=== PATIENT | male | born 1995 | race Caucasian/White ===

== ENCOUNTER 2017-11-25 08:19 | Emergency (ER) | payer OTHER, SELFPAY ==
[2017-11-25 08:31] VITALS: BP 141/95; PULSE 93; RESP 22; TEMP 36.4; O2SAT 96
[2017-11-25] MEDS: ALBUTEROL/IPRATROPIUM 3 ML AMPUL INH (08:31)
[2017-11-25 08:37] VITALS: PULSE 77; RESP 15; O2SAT 96
[2017-11-25] MEDS: predniSONE 20 MG TABLET 60 MG PO (09:10)
[2017-11-25] MEDS: ALBUTEROL HFA PREPACK 1 BOX MISC (09:13)
[2017-11-25 09:40] VITALS: BP 117/81; PULSE 67; RESP 16; O2SAT 100
--- NOTE | 2017-11-25 15:22 | ED_ITS ---
HPI - Asthma General Chief Complaint: Asthma Stated Complaint: ASHTMA ATTACK NO MEDS Time Seen by Provider: 11/25/17 08:21 Source: patient Mode of arrival: ambulatory Limitations: no limitations History of Present Illness HPI Narrative: Patient with longstanding history of asthma presents with shortness of breath and wheeze. He has run out of his typical asthma meds including albuterol as he does not have a primary care provider. Patient denies any runny nose, fever or chills and states that a common trigger for him is pollen MD complaint: asthma attack Onset (ago): hour(s) Severity: moderate Context: ran out of meds and allergen exposure Associated symptoms: dry cough Asthma History: childhood onset Related Data Current Asthma Therapy: inhaled bronchodilator Home Medications Medication Instructions Recorded Confirmed albuterol sulfate 11/25/17 Previous Rx's Medication Instructions Recorded prednisone See Label Instructions .ROUTE 11/25/17 .COMPLEX #30 tab Allergies Allergy/AdvReac Type Severity Reaction Status Date / Time No Known Drug Allergies Allergy Verified 11/25/17 08:33 Review of Systems Review of Systems All systems reviewed & are unremarkable except as noted in HPI and below Constitutional Denies chills, Denies fever(s), Denies lethargy and Denies weakness Eyes Denies change in vision, Denies eye discharge, Denies irritation and Denies loss of vision Cardiovascular Denies chest pain, Denies irregular heart rhythm, Denies lightheadedness, Denies palpitations, Reports dyspnea and Denies orthopnea Respiratory Reports as per HPI, Reports cough, Reports dyspnea and Reports wheezing Gastrointestinal Gastrointestinal: Denies abdominal pain, Denies change in bowel habits, Denies diarrhea, Denies nausea and Denies vomiting Musculoskeletal Denies back pain, Denies muscle weakness, Denies numbness and Denies tingling Integumentary/Breasts Denies pruritus, Denies erythema, Denies rash and Denies wounds Neurologic Denies confusion, Denies loss of vision, Denies numbness, Denies tingling and Denies weakness Psychiatric Denies anxiety, Denies confusion, Denies depression, Denies homicidal ideation and Denies suicidal ideation Endocrine Denies palpitations Hematologic/Lymphatic Denies easy bruising Allergic/Immunologic Reports wheezing Exam Narrative Exam Narrative: Pleasant 22-year-old male in moderate distress, sitting on edge of cart upright breathing difficulty Const General: cooperative, well developed and acute distress Nutritional Appearance: well nourished Orientation: alert, awake, oriented x3 and not confused HENMT Head: normocephalic and atraumatic Ears: external ears normal and TM's normal bilaterally Nose: external nose normal and No nasal discharge Face and sinus: sinuses nontender, face symmetric, no sinus tenderness and No dry mucous membranes Mouth: oral mucosae normal and moist mucous membranes Teeth and gingiva: dentition normal Throat: tonsils normal and uvula midline Eyes General: appearance normal, both eyes and all related structures Eyelids: eyelids normal Conjunctivae: conjunctivae normal Sclera: sclerae normal Pupils: PERRL EOM: EOM intact bilaterally Resp Effort & Inspection: able to speak in complete sentences, audible wheezes, cough and prolonged expiratory phase Cardio Rate: regular rate Rhythm: regular rhythm Heart Sounds: no click, no gallops, no murmurs and no rubs Pulses: normal peripheral pulses Skin General: no rashes or lesions noted, No jaundice and No petechiae Neuro General: alert, awake and oriented x3 Cognition: normal cognition Speech: speech normal Gait: normal gait [facility] Medical History Asthma (Acute) Social History Smoking Status: Never smoker Course Orders Ordered: ED Orders 11/25/17 08:21 Measure peak expiratory flow POST TREATMENT Measure peak expiratory flow PRE TREATMENT RT Consult Eval and Treat STAT Discontinued Medications Albuterol (Ventolin Hfa) 2 puff INH NOW PRN PRN Reason: Wheezing Albuterol (Ventolin Hfa Prepack) 1 box MISC SEEINSTR ONE Stop: 11/25/17 08:43 Albuterol (Ventolin Hfa Prepack) 1 box MISC SEEINSTR PRN PRN Reason: Wheezing Last Admin: 11/25/17 09:13 Dose: 1 box Albuterol/Ipratropium (Duoneb) 3 ml INH NOW ONE Stop: 11/25/17 08:22 Last Admin: 11/25/17 08:31 Dose: 3 ml Prednisone (Deltasone) 60 mg PO NOW ONE Stop: 11/25/17 08:22 Last Admin: 11/25/17 09:10 Dose: 60 mg Reevaluation(s) Reevaluation #1: Patient moving a bit more air after initial bronchodilator. Please note Respiratory therapy notes however there is improvement and peak flow is well but still the presence of wheezing Time: 09:07 Reevaluation #2: Patient feeling much better now and requesting discharge Time: 09:36 Last Vital Signs Temp 97.5 F L 11/25/17 08:31 Pulse 67 11/25/17 09:40 Resp 16 11/25/17 09:40 BP 117/81 H 11/25/17 09:40 Pulse Ox 100 11/25/17 09:40 Discharge Plan Departure Patient Disposition: Home, Self-Care Clinical Impression: Asthma with acute exacerbation Discharge Date/Time: 11/25/17 09:52 Interventions: ED Discharge Assessment Last Done: 11/25/17 09:52 Instructions: Asthma -- Adult Activity Restrictions/Additional Instructions: There is no evidence of an emergent or life threatening illness at this time, but follow up with your doctor in 1-2 days is recommended nonetheless to continue to rule out serious underlying causes of your symptoms. Please call the office for an appointment. Please return to the Emergency Department for any worsening or persistent symptoms. Please take medications as directed. Prescriptions: New prednisone 10 mg tablet See Label Instructions .ROUTE .COMPLEX Qty: 30 RF: 0 No Action albuterol sulfate inhaler RF: 0
== END 2017-11-25 09:52 | disposition home or self-care (01) ==
PROVIDERS: Emergency Provider Emergency Medicine
DX: J45.909 Unspecified asthma, uncomplicated (principal)
CPT/HCPCS: 94150; 94640; 99282; 99284

== ENCOUNTER 2017-12-13 19:03 | Emergency (ER) | payer OTHER, SELFPAY ==
[2017-12-13 19:10] VITALS: BP 122/85; PULSE 100; RESP 17; TEMP 36.6; O2SAT 96
[2017-12-13 19:21] VITALS: PULSE 79; RESP 18; O2SAT 98
--- NOTE | 2017-12-13 19:21 | ED.ASTHMA ---
HPI - Asthma <Francisca Hazel PA-C - Last Filed: 12/13/17 22:26> General Chief Complaint: Asthma Stated Complaint: STATES HAVING ASTHMA ATTACK AND INHALER IS NOT WOR Time Seen by Provider: 12/13/17 19:14 Source: patient Mode of arrival: ambulatory Limitations: no limitations History of Present Illness HPI Narrative: This 22-year-old with a history of asthma complains of worsening symptoms for the last 2-3 days. He states that he probably took 50 puffs on his ProAir in the last day or so. He states this is not as effective as Ventolin. He has increased dyspnea and wheeze. He also has been coughing for a few days. He has had a little bit of runny stuffy nose. He denies fever or chest pain. He states that he has needed steroids in the past and also used to be on Advair which was helpful. He states he is otherwise healthy without new complaints. He states he is feeling much better after nebulizer treatment Related Data Home Medications Medication Instructions Recorded Confirmed albuterol sulfate 2 puff INHALATION Q4-6H PRN 12/13/17 12/13/17 Previous Rx's Medication Instructions Recorded albuterol sulfate [Ventolin HFA] 2 puff INHALATION Q4-6H PRN 30 12/13/17 Days gram azithromycin See Label Instructions .ROUTE 12/13/17 .COMPLEX #6 tab fluticasone [Flovent HFA] 2 puff INHALATION Q12H 30 Days #12 12/13/17 gram prednisone 40 mg PO DAILY 5 Days #10 tab 12/13/17 Allergies Allergy/AdvReac Type Severity Reaction Status Date / Time No Known Drug Allergies Allergy Verified 12/13/17 19:09 Review of Systems <Francisca Hazel PA-C - Last Filed: 12/13/17 22:26> Review of Systems All systems reviewed & are unremarkable except as noted in HPI and below Exam <Francisca Hazel PA-C - Last Filed: 12/13/17 22:26> Narrative Exam Narrative: GENERAL APPEARANCE: Patient sitting comfortably, in no distress. HEAD: No sinus TTP. EYES: PERRL, EOMI. EARS: Normal auditory canals, right TM is intact with normal light reflex, left is occluded by cerumen ORAL CAVITY: Normal oropharynx. THROAT: Clear. NECK/THYROID: Neck supple, full range of motion, no cervical lymphadenopathy. LUNGS: Tight, with reduced breath sounds in general. Following nebulizers, improved air entry, generalized wheeze, a few very faint crackles on the left, no cough on exam. HEART: RRR without murmur, nl S1, S2, no S3 or S4. Initial Vital Signs Initial Vital Signs: Vital Signs Temperature 97.8 F 12/13/17 19:10 Pulse Rate 100 H 12/13/17 19:10 Respiratory Rate 17 12/13/17 19:10 Blood Pressure 122/85 H 12/13/17 19:10 Pulse Oximetry 96 12/13/17 19:10 <Matthew Goode DO - Last Filed: 12/14/17 00:22> Initial Vital Signs Initial Vital Signs: Vital Signs Temperature 97.8 F 12/13/17 19:10 Pulse Rate 100 H 12/13/17 19:10 Respiratory Rate 17 12/13/17 19:10 Blood Pressure 122/85 H 12/13/17 19:10 Pulse Oximetry 96 12/13/17 19:10 Course <Francisca Hazel PA-C - Last Filed: 12/13/17 22:26> Orders Ordered: ED Orders 12/13/17 19:23 XR chest 2V Stat Discontinued Medications Albuterol (Ventolin) 2.5 mg INH NOW ONE Stop: 12/13/17 19:24 Last Admin: 12/13/17 19:25 Dose: 2.5 mg Albuterol (Ventolin) 2.5 mg INH NOW ONE Stop: 12/13/17 19:26 Last Admin: 12/13/17 19:26 Dose: 2.5 mg Albuterol/Ipratropium (Duoneb) 3 ml INH NOW ONE Stop: 12/13/17 19:20 Last Admin: 12/13/17 19:24 Dose: 3 ml Vital Signs - 8 hr 12/13/17 19:10 12/13/17 19:21 12/13/17 19:26 Temperature 97.8 F Pulse Rate 100 H 79 Respiratory Rate 17 18 Blood Pressure 122/85 H Pulse Oximetry 96 98 97 12/13/17 20:30 Temperature Pulse Rate 102 H Respiratory Rate 18 Blood Pressure 126/82 H Pulse Oximetry 98 <Matthew Goode DO - Last Filed: 12/14/17 00:22> Orders Ordered: ED Orders 12/13/17 19:23 XR chest 2V Stat Discontinued Medications Albuterol (Ventolin) 2.5 mg INH NOW ONE Stop: 12/13/17 19:24 Last Admin: 12/13/17 19:25 Dose: 2.5 mg Albuterol (Ventolin) 2.5 mg INH NOW ONE Stop: 12/13/17 19:26 Last Admin: 12/13/17 19:26 Dose: 2.5 mg Albuterol/Ipratropium (Duoneb) 3 ml INH NOW ONE Stop: 12/13/17 19:20 Last Admin: 12/13/17 19:24 Dose: 3 ml Vital Signs - 8 hr 12/13/17 19:10 12/13/17 19:21 12/13/17 19:26 Temperature 97.8 F Pulse Rate 100 H 79 Respiratory Rate 17 18 Blood Pressure 122/85 H Pulse Oximetry 96 98 97 12/13/17 20:30 Temperature Pulse Rate 102 H Respiratory Rate 18 Blood Pressure 126/82 H Pulse Oximetry 98 MDM - Asthma <Francisca Hazel PA-C - Last Filed: 12/13/17 22:26> Imaging Data Chest x-ray: Radiologist's impression: [place] [address] XRay Report Signed Patient: JANAE DOMÍNGUEZ MR#: [id number] : 1995 Acct:[id number] Age/Sex: 22 / M Date of Service: 12/13/17 Loc: ED Accession Number: [id number] Procedure: XR chest 2V Ordering Provider: Francisca Hazel P.A-C PROCEDURE: XR CHEST 2V INDICATIONS: shortness of breath TECHNIQUE: 2 views of the chest were acquired. COMPARISON: None. FINDINGS: Surgical changes and devices: None. Lungs and pleura: No pleural effusions or pneumothorax. Minimal left lower lobe pulmonary opacities. Mediastinum: Mediastinal contours are normal. Heart size is normal. Bones and chest wall: No suspicious bony abnormalities. Soft tissues appear unremarkable. IMPRESSION: Minimal left lower lobe pulmonary opacities may represent infection or atelectasis. Otherwise the lungs are clear. Dictated by: Cem Shah M.D. on 12/13/2017 at 19:46 Approved by: Cem Shah M.D. on 12/13/2017 at 19:47 Discharge Plan Departure Patient Disposition: Home, Self-Care Clinical Impression: Asthma with acute exacerbation, Pneumonia Discharge Date/Time: 12/13/17 20:22 Interventions: ED Discharge Assessment Last Done: 12/13/17 20:30 Instructions: DI for Asthma -- Adult Activity Restrictions/Additional Instructions: Return as we talked about if you have any acutely worsening symptoms. Otherwise, leave here and go straight to the pharmacy. Take your 1st doses of prednisone, azithromycin, and the steroid inhaler tonight. Continue to use your albuterol as needed. You should follow up with your primary care provider 1st of next week for recheck because it appears that you have early pneumonia on your x-ray which is likely contributing to your asthma flare. You may wish to add an [id number] antihistamine such as which may also help Prescriptions: New azithromycin 250 mg tablet See Label Instructions .ROUTE .COMPLEX Qty: 6 RF: 0 prednisone 20 mg tablet 40 mg PO DAILY 5 Days Qty: 10 RF: 0 fluticasone [Flovent HFA] 110 mcg/actuation HFA aerosol inhaler 2 puff INHALATION Q12H 30 Days Qty: 12 RF: 0 albuterol sulfate [Ventolin HFA] 90 mcg/actuation HFA aerosol inhaler 2 puff INHALATION Q4-6H PRN (Reason: bronchospasm) 30 Days RF: 0 No Action albuterol sulfate 90 mcg/actuation Hfa Aerosol Inhaler 2 puff INHALATION Q4-6H PRN (Reason: Shortness Of Breath) RF: 0 Referrals: [facility] [Provider Group] <Matthew Goode, - Last Filed: 12/14/17 00:22> [facility] ED Attending Angela Attestation: I was available for consultation during this patient's emergency department encounter
[2017-12-13] MEDS: ALBUTEROL/IPRATROPIUM 3 ML AMPUL INH (19:24)
[2017-12-13] MEDS: ALBUTEROL 2.5 MG/3 ML NEB INH ×2 (19:25→19:26)
[2017-12-13 19:26] VITALS: O2SAT 97
--- NOTE | 2017-12-13 19:53 | PC.NURSE ---
Pt reports after the neb tx, breathing and sob improved. Mild wheezing which is improved from prior to neb tx.
--- NOTE | 2017-12-13 20:05 | ED_ITS ---
HPI - Asthma <Francisca Hazel PA-C - Last Filed: 12/13/17 22:26> General Chief Complaint: Asthma Stated Complaint: STATES HAVING ASTHMA ATTACK AND INHALER IS NOT WOR Time Seen by Provider: 12/13/17 19:14 Source: patient Mode of arrival: ambulatory Limitations: no limitations History of Present Illness HPI Narrative: This 22-year-old with a history of asthma complains of worsening symptoms for the last 2-3 days. He states that he probably took 50 puffs on his ProAir in the last day or so. He states this is not as effective as Ventolin. He has increased dyspnea and wheeze. He also has been coughing for a few days. He has had a little bit of runny stuffy nose. He denies fever or chest pain. He states that he has needed steroids in the past and also used to be on Advair which was helpful. He states he is otherwise healthy without new complaints. He states he is feeling much better after nebulizer treatment Related Data Home Medications Medication Instructions Recorded Confirmed albuterol sulfate 2 puff INHALATION Q4-6H PRN 12/13/17 12/13/17 Previous Rx's Medication Instructions Recorded albuterol sulfate [Ventolin HFA] 2 puff INHALATION Q4-6H PRN 30 12/13/17 Days gram azithromycin See Label Instructions .ROUTE 12/13/17 .COMPLEX #6 tab fluticasone [Flovent HFA] 2 puff INHALATION Q12H 30 Days #12 12/13/17 gram prednisone 40 mg PO DAILY 5 Days #10 tab 12/13/17 Allergies Allergy/AdvReac Type Severity Reaction Status Date / Time No Known Drug Allergies Allergy Verified 12/13/17 19:09 Review of Systems <Francisca Hazel PA-C - Last Filed: 12/13/17 22:26> Review of Systems All systems reviewed & are unremarkable except as noted in HPI and below Exam <Francisca aHzel PA-C - Last Filed: 12/13/17 22:26> Narrative Exam Narrative: GENERAL APPEARANCE: Patient sitting comfortably, in no distress. HEAD: No sinus TTP. EYES: PERRL, EOMI. EARS: Normal auditory canals, right TM is intact with normal light reflex, left is occluded by cerumen ORAL CAVITY: Normal oropharynx. THROAT: Clear. NECK/THYROID: Neck supple, full range of motion, no cervical lymphadenopathy. LUNGS: Tight, with reduced breath sounds in general. Following nebulizers, improved air entry, generalized wheeze, a few very faint crackles on the left, no cough on exam. HEART: RRR without murmur, nl S1, S2, no S3 or S4. Initial Vital Signs Initial Vital Signs: Vital Signs Temperature 97.8 F 12/13/17 19:10 Pulse Rate 100 H 12/13/17 19:10 Respiratory Rate 17 12/13/17 19:10 Blood Pressure 122/85 H 12/13/17 19:10 Pulse Oximetry 96 12/13/17 19:10 <Matthew Goode DO - Last Filed: 12/14/17 00:22> Initial Vital Signs Initial Vital Signs: Vital Signs Temperature 97.8 F 12/13/17 19:10 Pulse Rate 100 H 12/13/17 19:10 Respiratory Rate 17 12/13/17 19:10 Blood Pressure 122/85 H 12/13/17 19:10 Pulse Oximetry 96 12/13/17 19:10 Course <Francisca Hazel PA-C - Last Filed: 12/13/17 22:26> Orders Ordered: ED Orders 12/13/17 19:23 XR chest 2V Stat Discontinued Medications Albuterol (Ventolin) 2.5 mg INH NOW ONE Stop: 12/13/17 19:24 Last Admin: 12/13/17 19:25 Dose: 2.5 mg Albuterol (Ventolin) 2.5 mg INH NOW ONE Stop: 12/13/17 19:26 Last Admin: 12/13/17 19:26 Dose: 2.5 mg Albuterol/Ipratropium (Duoneb) 3 ml INH NOW ONE Stop: 12/13/17 19:20 Last Admin: 12/13/17 19:24 Dose: 3 ml Vital Signs - 8 hr 12/13/17 19:10 12/13/17 19:21 12/13/17 19:26 Temperature 97.8 F Pulse Rate 100 H 79 Respiratory Rate 17 18 Blood Pressure 122/85 H Pulse Oximetry 96 98 97 12/13/17 20:30 Temperature Pulse Rate 102 H Respiratory Rate 18 Blood Pressure 126/82 H Pulse Oximetry 98 <Matthew Goode DO - Last Filed: 12/14/17 00:22> Orders Ordered: ED Orders 12/13/17 19:23 XR chest 2V Stat Discontinued Medications Albuterol (Ventolin) 2.5 mg INH NOW ONE Stop: 12/13/17 19:24 Last Admin: 12/13/17 19:25 Dose: 2.5 mg Albuterol (Ventolin) 2.5 mg INH NOW ONE Stop: 12/13/17 19:26 Last Admin: 12/13/17 19:26 Dose: 2.5 mg Albuterol/Ipratropium (Duoneb) 3 ml INH NOW ONE Stop: 12/13/17 19:20 Last Admin: 12/13/17 19:24 Dose: 3 ml Vital Signs - 8 hr 12/13/17 19:10 12/13/17 19:21 12/13/17 19:26 Temperature 97.8 F Pulse Rate 100 H 79 Respiratory Rate 17 18 Blood Pressure 122/85 H Pulse Oximetry 96 98 97 12/13/17 20:30 Temperature Pulse Rate 102 H Respiratory Rate 18 Blood Pressure 126/82 H Pulse Oximetry 98 MDM - Asthma <Francisca Hazel PA-C - Last Filed: 12/13/17 22:26> Imaging Data Chest x-ray: Radiologist's impression: [place] [address] XRay Report Signed Patient: JANAE DOMÍNGUEZ MR#: [id number] : 1995 Acct:[id number] Age/Sex: 22 / M Date of Service: 12/13/17 Loc: ED Accession Number: [id number] Procedure: XR chest 2V Ordering Provider: Francisca Hazel P.A-C PROCEDURE: XR CHEST 2V INDICATIONS: shortness of breath TECHNIQUE: 2 views of the chest were acquired. COMPARISON: None. FINDINGS: Surgical changes and devices: None. Lungs and pleura: No pleural effusions or pneumothorax. Minimal left lower lobe pulmonary opacities. Mediastinum: Mediastinal contours are normal. Heart size is normal. Bones and chest wall: No suspicious bony abnormalities. Soft tissues appear unremarkable. IMPRESSION: Minimal left lower lobe pulmonary opacities may represent infection or atelectasis. Otherwise the lungs are clear. Dictated by: Cem Shah M.D. on 12/13/2017 at 19:46 Approved by: Cem Shah M.D. on 12/13/2017 at 19:47 Discharge Plan Departure Patient Disposition: Home, Self-Care Clinical Impression: Asthma with acute exacerbation, Pneumonia Discharge Date/Time: 12/13/17 20:22 Interventions: ED Discharge Assessment Last Done: 12/13/17 20:30 Instructions: DI for Asthma -- Adult Activity Restrictions/Additional Instructions: Return as we talked about if you have any acutely worsening symptoms. Otherwise , leave here and go straight to the pharmacy. Take your 1st doses of prednisone , azithromycin, and the steroid inhaler tonight. Continue to use your albuterol as needed. You should follow up with your primary care provider 1st of next week for recheck because it appears that you have early pneumonia on your x-ray which is likely contributing to your asthma flare. You may wish to add an [id number] antihistamine such as which may also help Prescriptions: New azithromycin 250 mg tablet See Label Instructions .ROUTE .COMPLEX Qty: 6 RF: 0 prednisone 20 mg tablet 40 mg PO DAILY 5 Days Qty: 10 RF: 0 fluticasone [Flovent HFA] 110 mcg/actuation HFA aerosol inhaler 2 puff INHALATION Q12H 30 Days Qty: 12 RF: 0 albuterol sulfate [Ventolin HFA] 90 mcg/actuation HFA aerosol inhaler 2 puff INHALATION Q4-6H PRN (Reason: bronchospasm) 30 Days RF: 0 No Action albuterol sulfate 90 mcg/actuation Hfa Aerosol Inhaler 2 puff INHALATION Q4-6H PRN (Reason: Shortness Of Breath) RF: 0 Referrals: [facility] [Provider Group] <Matthew Goode, - Last Filed: 12/14/17 00:22> [facility] ED Attending Angela Attestation: I was available for consultation during this patient's emergency department encounter
[2017-12-13 20:30] VITALS: BP 126/82; PULSE 102; RESP 18; O2SAT 98
== END 2017-12-13 20:22 | disposition home or self-care (01) ==
PROVIDERS: Emergency Provider Internal Medicine
DX: J18.9 Pneumonia, unspecified organism (principal)
CPT/HCPCS: 71046; 94150; 94640; 99283; J7613